=== PATIENT | male | born 1985 | race Caucasian/White ===

== ENCOUNTER 2020-03-23 22:11 | Emergency (ER) | payer OTHER, SELFPAY ==
[2020-03-23 22:38] VITALS: BP 142/82; PULSE 66; RESP 14; TEMP 36.8; O2SAT 97; BMI 24.0
--- NOTE | 2020-03-23 22:58 | XRR_ITS ---
PROCEDURE INFORMATION: Exam: XR Abdomen, 1 View Exam date and time: 03/23/2020 11:00 PM Age: 34 years old Clinical indication: Abdominal pain; Localized; Left; Additional info: L flank pain TECHNIQUE: Imaging protocol: XR of the abdomen. Views: Frontal supine view of the abdomen. 1 View. COMPARISON: No relevant prior studies available. FINDINGS: Gastrointestinal tract: Constipation without bowel dilation or air-fluid levels to indicate obstruction. Bones/joints: Unremarkable. XR/XR KUB portable 14239 IMPRESSION: 1. Negative for urinary calculus 2. Constipation without bowel dilation or air-fluid levels to indicate obstruction.
[2020-03-23 23:05] LABS: Basophils # 0.1 10^3/uL (0.0-0.1); Basophils % 0.8 %; Eosinophils # 0.3 10^3/uL (0.0-0.8); Eosinophils % 3.7 %; Lymphocytes # 1.2 10^3/uL (0.8-4.8); Lymphocytes % 13.4 %; Mean Corpuscular HGB Conc 32.6 g/dL (30.0-36.0); Mean Corpuscular Hemoglobin 28.1 pg (28.0-34.0); Mean Corpuscular Volume 86.3 fL (80-94); Mean Platelet Volume 9.2 fL (7.4-10.4); Monocytes # 0.8 10^3/uL (0.2-0.9); Monocytes % 8.1 %; Neutrophils # 6.77 10^3/uL (1.8-7.7); Neutrophils % 73.3 %; Nucleated Red Blood Cells % 0 %; Platelet Count 255 10^3/cmm (130-400); Red Blood Count 5.33 10^6/uL (4.1-5.3); Red Cell Distribution Width 12.6 % (12.1-15.1); White Blood Count 9.2 10^3/uL (4.0-10.0)
--- NOTE | 2020-03-23 23:14 | PC.NURSE ---
pt back from CT
[2020-03-23 23:22] LABS: Alanine Aminotransferase 23 U/L (0-41); Albumin Level 4.4 g/dL (3.5-5.2); Alkaline Phosphatase 119 IU/L (40-130); Anion Gap 10.7 (5-19); Aspartate Amino Transferase 17 U/L (0-40); Blood Urea Nitrogen 10 mg/dL (6-20); Calcium 9.3 mg/dL (8.5-10.5); Carbon Dioxide 29 mmol/L (22-29); Chloride 101 mmol/L (98-107); Globulin 2.9 g/dL (1.3-4.6); Glomerular Filtration Rate 95.5 mL/min (90-130); Glucose 118 mg/dL (65-115); Osmolality Calculated 284 mOsm/kg (285-295); Potassium 3.7 mmol/L (3.5-5.1); Sodium 137 mmol/L (136-145); Total Bilirubin 0.5 mg/dL (0.15-1.2); Total Protein 7.3 g/dL (6.6-8.7)
--- NOTE | 2020-03-24 00:13 | ED_ITS ---
HPI - Back Pain/Injury General: Chief Complaint: Back Pain/Injury Stated Complaint: Sharp pain in mid/lower back Time Seen by Provider: 03/23/20 22:35 History of Present Illness: HPI Narrative: 4-year-old male who experienced a severe, sharp left-sided flank pain this evening that got me to my knees . Perhaps mild nausea, no vomiting. The pain dissipated on its own. He complains of no pain currently. He did note some burning with urination in association with this pain that was mild. MD elicited complaint: back pain Onset (ago): hour(s) Timing: constant and now resolved Severity: severe Similar Symptoms Previously: No Quality: sharp Location: left flank Radiation: none Exacerbating factors: none Relieving factors: none Associated symptoms: Reports abdominal pain, dysuria and nausea; Deny chills, fever(s), urinary urgency or vomiting Review of Systems Const: Denies: fever(s) or chills Card: Denies: chest pain GI: Reports: abdominal pain and nausea; Denies: vomiting, hematemesis, diarrhea or hematochezia : Reports: flank pain and dysuria; Denies: urinary frequency, urinary urgency or testicular pain Neuro: Denies: headache(s) Physical Exam Const: COMMON NORMALS: no acute distress, patient oriented x3, no limitations, healthy appearing and alert Chest: COMMONS NORMALS: normal inspection of the chest Resp: COMMON NORMALS: normal respiratory effort, No retractions, No use of accessory muscles and clear to auscultation bilaterally AUSCULTATION: clear to auscultation bilaterally Cardio: COMMON NORMALS: regular rate, regular rhythm and No murmurs present (Cardio) RATE: regular rate RHYTHM: regular rhythm GI: COMMON NORMALS: Normal to inspection, nondistended, normoactive bowel sounds present, Soft to palpation and non-tender PALPATION: Yes Soft to palpation : BLADDER/KIDNEY EXAM: Yes CVA tenderness on the left (mild) Neuro: COMMON NORMALS: patient oriented x3 SENSORIUM/ORIENTATION: Yes alert Course Vital Signs: Vital signs: Vital Signs Temperature 98.2 F 03/23/20 22:38 Pulse Rate 59 L 03/24/20 01:37 Respiratory Rate 17 03/24/20 01:37 Blood Pressure 121/69 03/24/20 01:37 Pulse Oximetry 97 03/24/20 01:37 MDM - Back Pain/Injury MDM Narrative: Medical decision making narrative: Serum work-up is essentially normal. Urinalysis shows hematuria. KUB shows no visible stone. The patient's pain is resolved. Discussed findings with patient. He agrees that without recurrence of pain, likely this is a passed stone, and CT scan not necessary given lab work and resolution of symptoms. He will return if pain returns, at which point plan would be to CT with stone protocol. Lab Data: Labs: Lab Results 03/23/20 03/23/20 03/23/20 Range/Units 22:55 22:55 23:56 WBC 9.2 (4.0-10.0) 10^3/ uL RBC 5.33 H (4.1-5.3) 10^6/u L Hgb 15.0 (11.7-16.6) g/dL Hct 46.0 (42.0-52.0) % MCV 86.3 (80-94) fL MCH 28.1 (28.0-34.0) pg MCHC 32.6 (30.0-36.0) g/dL RDW 12.6 (12.1-15.1) % Plt Count 255 (130-400) 10^3/c mm MPV 9.2 (7.4-10.4) fL Neut % (Auto) 73.3 % Lymph % (Auto) 13.4 % [place] % (Auto) 8.1 % Eos % (Auto) 3.7 % Baso % (Auto) 0.8 % Neut # (Auto) 6.77 (1.8-7.7) 10^3/u L Lymph # (Auto) 1.2 (0.8-4.8) 10^3/u L [place] # (Auto) 0.8 (0.2-0.9) 10^3/u L Eos # (Auto) 0.3 (0.0-0.8) 10^3/u L Baso # (Auto) 0.1 (0.0-0.1) 10^3/u L Nucleated RBC % (a uto) 0 % Nucleated RBCs # 0.0 /100WBC Sodium 137 (136-145) mmol/L Potassium 3.7 (3.5-5.1) mmol/L Chloride 101 (98-107) mmol/L Carbon Dioxide 29 (22-29) mmol/L Anion Gap 10.7 (5-19) BUN 10 (6-20) mg/dL Creatinine 0.9 (0.7-1.2) mg/dL GFR Calculation 95.5 (90-130) mL/min Glucose 118 H (65-115) mg/dL Calculated Osmolal ity 284 L (285-295) mOsm/k g Calcium 9.3 (8.5-10.5) mg/dL Total Bilirubin 0.5 (0.15-1.2) mg/dL AST 17 (0-40) U/L ALT 23 (0-41) U/L Alkaline Phosphata se 119 (40-130) IU/L Total Protein 7.3 (6.6-8.7) g/dL Albumin 4.4 (3.5-5.2) g/dL Globulin 2.9 (1.3-4.6) g/dL Urine Color Yellow (Yellow) Urine Appearance Clear (CLEAR) Urine pH 5 (5-7) Ur Specific Gravit y 1.015 (1.005-1.030) Urine Protein Neg (Negative) Urine Glucose (UA) Norm (Normal) Urine Ketones Negative (Negative) Urine Blood 3+ H (Negative) Urine Nitrate Negative (Negative) Urine Bilirubin Neg (Negative) Urine Urobilinogen Norm (Negative) mg/dL Ur Leukocyte Iza ase Trace H (Negative) Urine RBC 10-15 H (0-2) /hpf Urine WBC 5-10 H (0-5) /hpf Ur Squamous Epith Cells 0-4 H (0-5) /hpf Calcium Oxalate Cr ystal 0-4 H /hpf Amorphous Sediment Not Reportable Urine Bacteria Trace (NONE) /hpf Urine Mucus Trace /hpf Discharge Plan Discharge Patient Disposition: Home Clinical Impression: Renal colic Condition: Stable Discharge Orders: Discharge ED (Routine); Ordered 03/24/20 Ordered By: Deep Dneson Discharge Diet: Advance as tolerated Discharge Activity: Resume usual activity Patient Instructions: Renal Colic (ED) Activity Restrictions/Additional Instructions: Your pain was likely from a passing kidney stone. If the pain returns, return to the ER. Also return for fever greater than 100, vomiting liquids or med ications, blood in the stool, any other concerning symptoms. Coding Level of Care Code ED [employer]
[2020-03-24 00:38] LABS: Add Urine Microscopic? YES; Bilirubin Urine Neg (Negative); Blood Urine 3+ (Negative); Glucose Urine UA Norm (Normal); Ketones Urine Negative (Negative); Leukocyte Esterase Urine Trace (Negative); Nitrate Urine Negative (Negative); Protein Urine Neg (Negative); Specific Gravity, Urine 1.015 (1.005-1.030); Urine Appearance Clear (CLEAR); Urine Color Yellow (Yellow); Urobilinogen Urine Norm (Negative); pH Urine 5 (5-7)
[2020-03-24 00:41] LABS: Bacteria Urine TRACE /hpf; Mucus Urine TRACE /hpf; Squamous Epithelial Cell Urine 0-4 /hpf (0-5)
[2020-03-24 00:42] LABS: Add Urine Culture? Yes; Calcium Oxalate Crystals Urine 0-4 /hpf
[2020-03-24 00:46] VITALS: BP 138/80; PULSE 63; RESP 17; O2SAT 98
[2020-03-24 01:37] VITALS: BP 121/69; PULSE 59; RESP 17; O2SAT 97
== END 2020-03-24 01:37 | disposition home or self-care (01) ==
PROVIDERS: Emergency Provider Emergency Medicine
DX: N23 Unspecified renal colic (principal)
CPT/HCPCS: 12345; 74018; 80053; 81001; 85025; 87086; 99282; 99283